=== PATIENT | female | born 1945 | race American Indian/Alaskan Native ===

== ENCOUNTER 2016-12-01 09:56 | Emergency (ER) | payer MEDICARE, MEDICAID ==
[2016-12-01 10:52] VITALS: BP 113/58
--- NOTE | 2016-12-01 11:19 | Emergency Department Report ---
ED Fall HPI - General Chief Complaint: Fall Stated Complaint: FALL Time Seen by Provider: 12/01/16 10:47 Source: patient, EMS Mode of arrival: Stretcher - History of Present Illness Initial Comments: Patient is a 8-year-old female presenting from group home status post fall. Patient reports in the middle that she was attempting to use her bedside commode when she fell and struck the right side of her head. Patient denies any LOC and remembers the entire episode. Patient denies any anticoagulant use. Patient complains of pain on the right side of her head. Otherwise no fevers, chills, dizziness, vision changes, nausea, vomiting, diarrhea, chest pain, shortness of breath, abdominal pain, extremity pain, gait disturbance, travel, or sick contacts. Patient normally ambualtes with a cane. ED Review of Systems ROS: Stated complaint: FALL Other details as noted in HPI ED Past Medical Hx - Past Medical History Hx Dementia: Yes Hx HIV: Yes ED Physical Exam - General Limitations: Physical Limitation General appearance: alert, in no apparent distress - Head Head exam: Present: normocephalic, other (frontal R scalp hematoma) - Eye Eye exam: Present: normal appearance, PERRL, EOMI. Absent: scleral icterus, nystagmus Pupils: Present: normal accommodation. Absent: unequal - ENT ENT exam: Present: normal exam, mucous membranes moist, other (periorbital ecchymoses bilaterally) - Neck Neck exam: Present: normal inspection, full ROM. Absent: tenderness, meningismus - Respiratory Respiratory exam: Present: normal lung sounds bilaterally. Absent: respiratory distress, wheezes, rales, rhonchi - Cardiovascular Cardiovascular Exam: Present: regular rate, normal rhythm. Absent: systolic murmur, diastolic murmur, rubs, gallop - GI/Abdominal GI/Abdominal exam: Present: soft, normal bowel sounds. Absent: distended, tenderness, guarding, rebound, rigid - Extremities Exam Extremities exam: Present: normal inspection - Back Exam Back exam: Present: normal inspection - Neurological Exam Neurological exam: Present: alert, oriented X3, CN II-XII intact. Absent: motor sensory deficit - Psychiatric Psychiatric exam: Present: normal affect, normal mood - Skin Skin exam: Present: warm, dry, intact, normal color. Absent: rash ED Course Vital Signs 12/01/16 12/01/16 12/01/16 10:26 10:50 10:51 Temperature 98.5 F Pulse Rate 70 73 Respiratory 16 16 16 Rate Blood Pressure 130/80 Blood Pressure 113/58 [Left] O2 Sat by Pulse 100 100 Oximetry ED Medical Decision Making - EKG Data -: EKG Interpreted by Me - EKG Data 12/01/16 11:35 EKG 11:30 Sinus rhythm at 73 beats minute, QTc 470 ms, normal axis, no LVH, incomplete right bundle-branch block, no ST changes, no STEMI - Radiology Data Radiology results: report reviewed Ct head: No acute intracranail findings, scalp swelling seen CT c spine: No acute fracture or subluxation, cervical spondylosis Critical care attestation.: If time is entered above; I have spent that time in minutes in the direct care of this critically ill patient, excluding procedure time. ED Disposition Clinical Impression: Fall, Hematoma, Head injury due to trauma Disposition: DC-01 TO HOME OR SELFCARE Is pt being admited?: No Condition: Stable Instructions: Fall Prevention for Older Adults (ED), Contusion in Adults (ED), Minor Head Injury (ED) Referrals: REINA DOS SANTOS MD [Primary Care Provider] - 3-5 Days
--- NOTE | 2016-12-01 12:10 | Cat Scan Report ---
CT HEAD WITHOUT CONTRAST: HISTORY: Head injury, trauma. Serial contiguous axial images were obtained through the cranium. Intravenous contrast material was not administered. The ventricles are normal in size and appearance. There is no mass effect or midline shift. No areas of abnormally increased or decreased attenuation are seen. No mass lesion is seen. The mastoid air cells and visualized portions of the sinuses are normal. Mild frontal soft tissue swelling is noted. IMPRESSION: Cranial CT scan within normal limits.
--- NOTE | 2016-12-01 12:35 | Cat Scan Report ---
CT SCAN OF THE CERVICAL SPINE: HISTORY: Trauma, neck injury. TECHNIQUE: Contiguous 1.25 mm axial images of the cervical spine were obtained. Sagittal and coronal reformatted images. FINDINGS: There is normal alignment of the cervical spine. The body, pedicles and posterior ligaments appear normal. No evidence of fracture or subluxation is seen. Moderate joint and disc disease is noted at C4-5, C5-6 and C6-7. The spinal canal appears normal. The prevertebral soft tissues appear normal. IMPRESSION: Cervical spondylosis. No acute process is noted.
== END 2016-12-01 17:28 | disposition home or self-care (01) ==
LOC: ED 09:56
DX: S00.83XA Contusion of other part of head, initial encounter (principal); F03.90 Unspecified dementia, unspecified severity, without behavioral disturbance, psychotic disturbance, mood disturbance, and anxiety; Z88.6 Allergy status to analgesic agent; W06.XXXA Fall from bed, initial encounter; Y93.89 Activity, other specified; Y92.89 Other specified places as the place of occurrence of the external cause; Y99.8 Other external cause status
CPT/HCPCS: 70450; 72125; 93005; 93010